=== PATIENT | male | born 1970 | race Caucasian/White ===

== ENCOUNTER 2016-07-15 03:51 | Emergency (ER) | payer SELFPAY ==
[~2016-07-15] VITALS: Ht 176.5 cm; Wt 82.4 kg
[~2016-07-15 03:51] MED LIST: CLIN-89 PO; HYDR-4246 PO; NO CURRENT HOME MEDS
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
--- OUTSIDE RECORDS SUMMARY | 2016-07-15 03:56 | XMS REPORT | Continuity of Care Document ---
Author Author [facility] Organization [facility] Address Unknown Phone Unavailable Support Name Relationship Address Phone MAURA FUCHS DO Caregiver [address] [place] [address] Unavailable BETH CHAVEZ Next Of Kin [address] [place] [address] Insurance Providers Guarantor Darin Chavez Address [address] [place] [address] Email DENIED TO PT PORTAL Payer Self Pay Subscriber's Name Darin Chavez Relationship 18 Self Advance Directives Directive Response Recorded Date/Time Advanced Directives Type None 01/27/16 3:28am Chief Complaint and Reason for Visit Chief Complaint Toothache Reason for Visit [id number] Problems Active Problems Medical Problem Onset Date Status Lumbar back pain Unknown Acute Lumbar radiculopathy Unknown Acute Past Problems Medical Problem Onset Date Tooth fracture Unknown Medications Current Home Medications Medication Dose Units Route Directions Days Qty Instructions Start Date Clindamycin Hcl 150 Mg Capsule 1 Cap Oral Four Times Daily 7 Days 28 Capsule TAKE WITH A FULL GLASS OF WATER TO AVOID ESOPHAGEAL IRRITATION. Hydrocodone/Acetaminophen (Convoy 5-325 Tablet) 5-325 Tablet 1 Tab Oral Q6h/ 0300,0900,1500,2100 as needed for Pain 20 Tablet 01/27/16 No Current Home Meds 01/27/16 Past Home Medications Medication Directions Ordered Status Januit , 09/13/10 Discontinued None , 06/29/10 Discontinued None , 07/29/08 Discontinued Sitagliptin Phos/Metformin Hcl (Janumet 50-1,000 Mg Tablet) 1 Tab Tablet, Twice A Day 04/12/10 Discontinued Social History Social History Problem Response Recorded Date/Time Onset Date Status Chewing Tobacco Status No 01/27/2016 3:50am Not Applicable Not Applicable Hx Substance Use No 01/27/2016 3:50am Not Applicable Not Applicable Hx Alcohol Use Y OCCASIONALLY 01/27/2016 3:50am Not Applicable Not Applicable Query Response Start Date Stop Date Smoking Status Current every day smoker Hospital Discharge Instructions No hospital discharge instructions. Plan of Care Discharge Date 01/27/16 4:03am Disposition 01 DISCHARGED HOME, SELF-CARE Condition at Discharge Improved Instructions/Education Provided DI for Fractured Tooth Prescriptions See Medication Section Referrals [facility] Order Date: 1 Day Additional Instructions/Education Take the antibiotic as prescribed. Use the norco for pain not controlled with naproxen. Follow up with a dentist as soon as possible. Care Plan and Goals Physician Care Plan Problem: Fractured tooth Goal: Follow up with primary care provider Instructions: Take medications and follow care plan as discussed/written Functional Status No functional status results. Allergies, Adverse Reactions, Alerts Allergen Type Severity Reaction Status Last Updated Prednisone Allergy Severe Active 01/27/16 Immunizations Query Response on File Recorded Date/Time Hx Tetanus, Diptheria, Pertussis Y 06/18/10 10/18/10 5:35pm Hx Tetanus, Diptheria, Pertussis Y 06/18/10 10/18/10 5:35pm Influenza Vaccine Hx DOESN'T RECEIVE 04/29/15 12:18pm Vital Signs Acute Vital Signs Vital Response Date/Time Temperature (Fahrenheit) 98.4 deg F (96.8 - 99.1) 01/27/2016 4:03am Temperature (Calculated Celsius) 36.76458 degrees C (36.0 - 37.3) 01/27/2016 4:03am Pulse Rate (adult) 87 bpm (60 - 100) 01/27/2016 4:03am Respiratory Rate 20 breaths/min (10 - 20) 01/27/2016 4:03am O2 Sat by Pulse Oximetry 96 % (90 - 100) 01/27/2016 4:03am Blood Pressure 160/86 mm Hg 01/27/2016 4:03am Height (Feet) 5 feet 01/27/2016 3:28am Height (Inches) 9.00 inches 01/27/2016 3:28am Weight (Kilograms) 74.300 kg 01/27/2016 3:28am Body Mass Index (BMI) 24.0 01/27/2016 3:28am Results No known relevant diagnostic tests, laboratory data and/or discharge summary. Procedures No known history of procedures. Encounters Encounter Location Arrival/Admit Date Discharge/Depart Date Attending Provider Departed Emergency Room [facility] 01/27/16 3:15am 01/27/16 4: 03am MAURA FUCHS DO Recent Diagnosis
[2016-07-15 03:58] VITALS: BP 111/55; PULSE 84; RESP 18; O2SAT 97; Ht 176.5 cm; Wt 82.4 kg
[2016-07-15] MEDS ORDERED: KETOROLAC 60mg/2ml INJECTION IM ONE (04:15)
[2016-07-15] MEDS ORDERED: ORPHENADRINE 60mg/2ml INJECTION IM ONE (04:15)
--- NOTE | 2016-07-15 04:15 | ERPDOC ---
Departure Disposition Decision Date: Jul 15, 2016 Disposition Decision Time: 04:52 Disposition: 01 DISCHARGED HOME, SELF-CARE Impression Impression Impression: Primary Impression: Lumbar back pain Chronicity: acute Back pain laterality: bilateral Sciatica presence: without sciatica Qualified Codes: M54.5 - Low back pain Severity: Moderate Condition: Improved Seen By: Physician only Referrals: YOUR PHYSICIAN 1 Week Patient Instructions: Acute Low Back Pain (ED) Problems/Meds/Labs Reviewed?: Yes Medications reviewed and manag: Yes Additional Instructions: You have strained your back. Use heat, naproxen, and the flexeril to help with your pain and spasm. If your pain is still too strong, take a norco in addition. Follow up with your doctor later this week. Follow up care ordered?: Yes Scripts Cyclobenzaprine HCl (Cyclobenzaprine HCl) 10 Mg Tablet 10 MG PO TID Y for MUSCLE SPASM, #40 TAB 0 Refills Prov: AUGUSTMAURA DO 07/15/16 HPI - Back Pain General Chief Complaint: Low Back Pain or Injury Stated Complaint: BACK PAIN Time Seen by Provider: 04:06 Source: patient Exam Limitations: no limitations HPI - Back Pain Initial Comments 45yo man presents to the ER tonight with LBP. Pt has a long h/o LBP; has been dx 'ed with spinal stenosis of L5. Helped a friend's father move 3 days ago; has had pain and trouble with ADL's/sleep ever since. Pt has tried tylenol PM to help him sleep (h/o BP d/o; psychosis with lack of sleep) without much success. Pt would like relief of his pain and ability to sleep. Occurred At: home Onset/Timing: Rapid, Constant Duration: other Pain/Severity Scale: Now & Worst: 8/10 Severity/Quality: severe, dullness, sharpness Location: lumbar spine Radiation: buttocks Method of Injury/Context: prior injury, other Modifying Factors: IMPROVES WITH: pain medication, WORSE WITH: immobilization, jarring, movement, rest Associated Sypmtoms: lower back pain, muscle spasms, DENIES: fever, loss of bladder control, loss of bowel control, numbness in legs/feet, sensory/motor loss, tingling in legs/feet, weakness Hx of Similar Symptoms: Yes Allergies: Coded Allergies: prednisone (Verified Allergy, Severe, 01/27/16) Past History Past Medical History Metabolic: diabetes ENMT: dental problems Musculoskeletal: back pain, neck pain, osteoarthritis, other Psychological: bipolar, depression, psychosis Surgical History Joint: hand Family History Family PMH: FOUND: [place], cancer, depression Vaccines Hx Tetanus, Diptheria, Pertuss: Yes (06/18/10) Review of Systems Musculoskeletal General: pain, see HPI All other Systems All Other Systems: Reviewed and Negative Physical Exam General General Nourishment: well nourished, well developed, appears stated age, no acute distress, adult General Body Habitus: well groomed Vitals and Pain First Documented Vital Signs Date Time Temp Pulse Resp B/P Pulse Ox O2 Delivery O2 Flow Rate FiO2 07/15/16 03:58 84 18 111/55 97 Room Air Weight: Kilograms: Height (feet): 5 Height (inches): 9.00 Triage Pain Scale: RN VS reviewed by Provider: Yes Normal Exams: Head: Normocephalic w/o trauma Eyes: Pupils are PERRLA w/ EOMI, No scleral icterus, irritation ENMT: No facial trauma, nasal exudates, pharyngeal erythema Neck: Full range of motion, without adenopathy, JVD Lymphatic: No lymphadenopathy Integumentary: No rashes, hives, or bruising noted Neurologic: Patient is alert, and oriented Psychiatric: Patient exhibits, appropriate attention Musculoskeletal (brief) Musculoskeletal Brief: FOUND: spasm, NOT FOUND: deformity, loss of motion, tenderness Comments Paraspinal lumbar Neurologic (brief) Neurological Brief: FOUND: CN w/o gross def to obs, DTR 2/4 all extremities, motor-no gross deficits, sensory-no gross deficits Supervisory Exam Chest: symmetric Abdomen: non-distended Differential Diagnoses Considering: Disc Herniation, Lumbar Sprain, Lumbar Strain, Other (Sciatica) Progress Results/Orders Orders Procedure Category Date Status Time Ketorolac (Toradol) PHA 07/15/16 Complete 04:15 Orphenadrine (Norflex) PHA 07/15/16 Complete 04:15 Lumbar Spine 2-3 Views RAD 07/15/16 Resulted 04:17 Cyclobenzaprine PHA 07/15/16 Complete (Prepack) (Flexeril 05:00 Hydrocodone/Apap PHA 07/15/16 Complete 5/325 Prepack ([place] 5 05:00 Medications Current ED Medications Ketorolac Tromethamine (Toradol) 60 mg O ONCE IM Last administered on 04:24; Start 07/15/16 at 04:15; Stop 07/15/16 at 04:16; Status DC Orphenadrine Citrate (Norflex) 60 mg O ONCE IM Last administered on 07/15/16 04:21; Start 07/15/16 at 04:15; Stop 07/15/16 at 04:16; Status DC Cyclobenzaprine HCl (FLEXERIL (PrePack)) 1 pack O ONCE SENT HOME Last administered on 07/15/16 04:58; Start 07/15/16 at 05:00; Stop 07/15/16 at 05:02; Status DC Acetaminophen/ Hydrocodone Bitart (NORCO 5 (PrePack)) 1 pack O ONCE SENT HOME Last administered on 07/15/16 04:58; Start 07/15/16 at 05:00; Stop 07/15/16 at 05: 02; Status DC Progress Progress No acute findings on PE or rads. Some improvement with norflex/toradol. Pt has to work later today; requesting 'pain pill' in addition to recommended course of treatment. Pt has chronic benzo on K-TRACs, but does not have frequent narc prescriptions. Will give short course of norco in addition to flexeril. Discussed dx, prognosis, and tx; pt voiced understanding. F/u with PCM. Xray Xray : Xray: L-Spine Interpretation: Abnormal (Stable findings), Interpreted by MAURA Atkinson DO Jul 15, 2016 04:15
[2016-07-15] MEDS ORDERED: PREG25CA PO (04:28)
--- NOTE | 2016-07-15 04:36 | NUR ---
RETURN FROM IMAGING.
[2016-07-15] MEDS ORDERED: CYCL-375 PO (04:54)
[2016-07-15] MEDS ORDERED: CYCLOBENZAPRINE 10MG (PrePack) SENT HOME ONE (05:00)
[2016-07-15] MEDS ORDERED: HYDROCODONE/APAP 5/325 (PrePack) SENT HOME ONE (05:00)
--- NOTE | 2016-07-15 05:00 | NUR ---
DEPART PT REFUSED DC VITALS. GIVEN DI FOR ACUTE LOW BACK PAIN, FLEXERIL, NORCO, F/U. RX PROVIDED FOR FLEXERIL. PREPAK FOR FLEXERIL AND NORCO. PT VERBALIZES UNDERSTANDING OF DI, MEDS, AND F/U. DENIES FURTHER NEEDS/QUESTIONS. PT AMBULATED TO ED EXIT - GAIT STABLE, NO SIGN OF DISTRESS.
--- OUTSIDE RECORDS SUMMARY | 2016-07-15 05:15 | XMS REPORT | Continuity of Care Document ---
Author Author [facility] Organization [facility] Address Unknown Phone Unavailable Allergies Active Description [...] Final 780.79 MALAISE FATIGUE NEC 01/10/2012 Shan Aleln MD Admitting 784.2 SWELLING IN HEAD NECK [...] Status Pt. Type Provider Facility Loc./Unit Complaint [id number] 08/27/2013 21:43:00 2013 00:05:00 DIS Emergency Dong RICHARDS, Bharath Taylor [facility] on [address] [id number] 01/10/2012 18:00:00 2011 18:24:00 DIS Emergency Shan Allen MD [facility] on [facility]
--- NOTE | 2016-07-16 09:25 | DI ---
Indication: ITS.REASON: LBP PROCEDURE: LUMBAR SPINE 2-3 VIEWS: Encounter: Initial Comparison: April 29, 2015 Findings: Alignment of the lumbar spine is stable. No acute fracture or subluxation seen. Vertebral body heights and disk spaces are unchanged. Moderate disk space loss at L1-L2 with osteophytes. Impression: No acute fracture. .
== END 2016-07-15 05:00 | disposition home or self-care (01) ==
LOC: ED 03:51
DX: M54.5 Low back pain (principal)
CPT/HCPCS: 96372